=== PATIENT | male | born 1950 | race Caucasian/White ===

== ENCOUNTER 2017-12-21 14:53 | Outpatient (CLI) | payer OTHER ==
--- NOTE | 2017-12-21 16:17 | MRI ---
MRI CERVICAL SPINE WITHOUT CONTRAST: 12/21/17 HISTORY: R53.1 - weakness. COMPARISON: None. FINDINGS: Cerebellar tonsils remains at the level of the foramen magnum. ACDF hardware at C5-C7. There is a hem angioma within the C2 vertebral body. No cervical adenopathy. Paraspinal musculature is symmetric. No marrow infiltrative process. Levels are as follows: C2-3: There is a large left paracentral and subforaminal and moderate recess posterior disc osteophyt e complex. Severe facet arthropathy. Moderate to severe left sided neural foraminal narrowing. Mild u ncinate process hypertrophy. Mild right sided neural foraminal narrowing. C3-4: Broad based posterior disc osteophyte complex. Spinal canal not significantly narrowed. There i s moderate bilateral facet arthrosis. Moderate bilateral neural foraminal narrowing. C4-5: Large posterior disc osteophyte complex, broad based. Moderate facet arthropathy. There is exte nsive ligamentum flavum hypertrophy. There is mild narrowing of the spinal canal to approximately 8 m m. Moderate right and mild left sided neural foraminal narrowing. C5-6: Discectomy changes. Mild to moderate facet arthropathy. No significant neural foraminal or spin al canal narrowing. C6-7: Prior discectomy. Moderate facet arthrosis. No significant neural foraminal or spinal canal tj rowing. C7-T1: Moderate facet arthrosis. Small bilateral subforaminal and lateral recess posterior disc osteo phyte complexes. There is mild right sided neural foraminal narrowing. IMPRESSION: Multilevel spondylosis as described above. POS: ENEIDA
== END 2017-12-21 14:54 | disposition home or self-care (01) ==
LOC: TBSIIMAG 14:53
PROVIDERS: ATTEND Psychiatry & Neurology Neurology
DX: R53.1 Weakness (principal); M47.892 Other spondylosis, cervical region; M47.893 Other spondylosis, cervicothoracic region
CPT/HCPCS: 72141

== ENCOUNTER 2020-03-03 17:53 | Emergency (ER) | payer OTHER ==
[2020-03-03 18:25] LABS: #Lymphocytes 1.7 thou/uL (1.20-3.40); #Monocytes 1.1 thou/uL (0.11-0.59); %Basophils 0.2 % (0.0-1.0); %Eosinophils 0.1 % (0.0-10.0); %Lymphocytes 10.6 % (21.0-51.0); %Monocytes 7.1 % (0.0-10.0); Hemoglobin 15.1 g/dL (14.0-18.0); Mean Corpuscular HGB CONC 32.3 g/dL (32.0-36.0); Mean Corpuscular Hemoglobin 29.2 pg (27.0-31.0); Mean Corpuscular Volume 90.5 fL (78.0-98.0); Mean Platelet Volume 9.2 fL (7.4-10.4); Platelet Count 201 thou/uL (130-400); RBC Distribution Width 12.8 % (11.5-14.5); Red Blood Cell (RBC) Count 5.17 mill/uL (4.70-6.10); White Blood Cell (WBC) Count 15.8 thou/uL (4.8-10.8)
--- NOTE | 2020-03-03 18:44 | RAD ---
RADIOGRAPH CHEST 1 VIEW: DATE: 03/03/2020 HISTORY: 69-year-old male with mid sternal chest pain FINDINGS: There is no consolidations, pulmonary edema, or pneumothorax. The lateral costophrenic angles are not effaced. Sternotomy wires. Old left rib fracture deformities. Prominent interstitial markings at lower lung zones, probably chronic. IMPRESSION: No acute pulmonary findings.
[2020-03-03 18:55] LABS: ALT (SGPT) 23 U/L (8-55); AST (SGOT) 21 U/L (5-34); Albumin 3.6 g/dL (3.4-4.8); Alkaline Phosphatase 95 U/L (40-110); Anion Gap 14 mmol/L (10-20); BUN (Urea Nitrogen) 25 mg/dL (8.4-25.7); Bilirubin, Total 0.3 mg/dL (0.2-1.2); CK (CPK) 233 U/L (30-200); Calc. Creatinine Clearance 0 mL/min (70-130); Calcium 8.6 mg/dL (7.8-10.44); Carbon Dioxide 28 mmol/L (23-31); Chloride 100 mmol/L (98-107); Estimated GFR-MDRD 53; Globulin 3.3 g/dL (2.4-3.5); Glucose 237 mg/dL (80-115); Potassium 3.9 mmol/L (3.5-5.1); Protein, Total 6.9 g/dL (5.8-8.1); Sodium 138 mmol/L (136-145)
[2020-03-03] MEDS ORDERED: Nitroglycerin 2% Ointment 1 INCH/1 GM Packet ONE (19:10)
[2020-03-03] MEDS ORDERED: Nitroglycerin 0.4 MG TAB 1 EACH ONE (19:10)
[2020-03-03] MEDS ORDERED: Aspirin Chewable 81 MG TAB ONE (19:10)
[2020-03-03 19:16] LABS: CKMB 10.7 ng/mL (0-6.6)
[2020-03-04 09:08] LABS: SARS-CoV-2 MS2 Negative; SARS-CoV-2 N Gene Positive; SARS-CoV-2 S Gene Positive; SARS-CoV-2 by NAA DETECTED (NotDetected); SARS-CoV-2 orf1ab Positive
--- NOTE | 2020-03-06 15:34 | EKG ---
Test Reason : Blood Pressure : / mmHG Vent. Rate : 061 BPM Atrial Rate : 061 BPM P-R Int : 180 ms QRS Dur : 106 ms QT Int : 436 ms P-R-T Axes : 018 -73 039 degrees QTc Int : 438 ms Normal sinus rhythm Left axis deviation Inferior infarct , age undetermined Abnormal ECG Confirmed by MANISHA THOMAS, SHELBIE Morel ([id number]), newspaper managing editor YASMIN MACE ([id number]) on 03/06/2020 3:33:51 PM Referred By: Confirmed By:SHELBIE DYER MD
== END 2020-03-03 21:51 | disposition short-term general hospital (02) ==
LOC: ERS 17:53
DX: I20.0 Unstable angina (principal); I16.1 Hypertensive emergency; R79.89 Other specified abnormal findings of blood chemistry; E10.9 Type 1 diabetes mellitus without complications; I25.2 Old myocardial infarction; E78.5 Hyperlipidemia, unspecified; E78.00 Pure hypercholesterolemia, unspecified; I10 Essential (primary) hypertension
CPT/HCPCS: 36415; 71045; 80053; 82550; 82553; 83880; 84484; 85025; 87635; 93005; U0003